=== PATIENT | male | born 1995 | race American Indian/Alaskan Native ===

== ENCOUNTER 2022-03-11 09:46 | Outpatient (REF) | payer OTHER, SELFPAY ==
[2022-03-11 10:17] LABS: MANUAL DIFF FLAG NO
[2022-03-11 11:55] LABS: Appearance Urine HAZY; Color Urine YELLOW; Glucose Urine UA NEG (NEG); Leukocyte Esterase Urine NEG (NEG); Nitrite Urine NEG (NEG); PH 7.5 (5.0-8.0); Specific Gravity - Urine 1.015 (1.005-1.025); Urine Blood NEG (NEG); Urine Ketones NEG (NEG); Urine Protein NEG (NEG-TRACE)
[2022-03-11 11:57] LABS: Basophils Percent Auto 0.5 % (0-2); Eosinophils Absolute Auto 0.1 X10*3/uL (0.0-0.4); Eosinophils Percent Auto 1.1 % (0-4); Estimated Average Glucose 108 mg/dL; Hematocrit 45.8 % (42.0-52.0); Hemoglobin 14.9 g/dl (14.0-18.0); Hemoglobin A1c % 5.4 %; Imm Gran Abs Auto 0.02 X10*3/uL (0.00-0.03); Imm Gran Pct Auto 0.3 % (0.0-0.4); Lymphocytes Absolute Auto 1.8 X10*3/uL (1.2-4.9); Lymphocytes Percent Auto 28.4 % (20-40); Mean Corpuscular HGB Conc 32.5 g/dl (31.0-36.0); Mean Corpuscular Hemoglobin 27.7 pg (27.0-33.0); Mean Corpuscular Volume 85.3 fL (80.0-98.0); Mean Platelet Volume 9.2 fL (9.4-12.4); Monocytes Absolute Auto 0.5 X10*3/uL (0.1-1.2); Monocytes Percent Auto 7.7 % (2-11); Neutrophils Absolute Auto 3.9 x10*3/uL (2.0-8.3); Platelet Count 250 X10*3/uL (160-400); Red Blood Count 5.37 X10*6/uL (4.60-5.80); Red Cell Distribution Width 13.6 % (11.0-16.0); White Blood Count 6.3 X10*3/uL (4.8-10.8)
[2022-03-11 12:09] LABS: Alanine Aminotransferase 47 U/L (0-40); Albumin Level 4.3 g/dL (3.5-5.0); Alkaline Phosphatase 111 U/L (39-117); Anion Gap 12 (12-20); Aspartate Amino Transferase 23 U/L (5-37); Bilirubin Total 0.9 mg/dL (0.0-1.0); Blood Urea Nitrogen 13 mg/dL (9-16); Calcium 9.7 mg/dL (8.4-10.2); Carbon Dioxide 28 mmol/L (22-29); Chloride 103 mmol/L (96-108); Cholesterol 225 mg/dL; Estimated Glomerular Filt Rate > 60; Glucose Random 88 mg/dL (60-115); HDL Cholesterol 46 mg/dL; LDL Cholesterol Calculated 154 mg/dl; Potassium 4.3 mmol/L (3.3-5.1); Sodium 139 mmol/L (135-145); Total Protein 6.7 g/dL (6.5-8.0); Triglycerides 129 mg/dL
[2022-03-11 12:17] LABS: Creatinine Urine 158.18 mg/dL
== END 2022-03-11 09:47 | disposition home or self-care (01) ==
LOC: HO.LAB 09:46
PROVIDERS: PCP Internal Medicine; Visit Provider Internal Medicine
DX: Z00.00 Encounter for general adult medical examination without abnormal findings (principal); I10 Essential (primary) hypertension; M23.92 Unspecified internal derangement of left knee
CPT/HCPCS: 36415; 80053; 80061; 81003; 83036; 85025

== ENCOUNTER 2024-03-14 08:48 | Outpatient (AMB) | payer BC, SELFPAY ==
--- NOTE | 2024-03-14 08:57 | MHC.OFFVIS ---
Vital Signs 03/14/24 09:02 Height 5 ft 7 in Weight 230 lb BMI 36.0 Intake Visit Reasons: N/P rt knee pain/injury knee playin B-ball Intake Note: Pascual is a 28 year old male who presents today as a new patient for an evaluation of right knee pain. Patient reports he was playing basketball about a month ago and when he was running he made a weird turn and heard a popping/cracking sound in his right knee. Pain is focused around the whole knee. His pain is worse when applying weight and when sitting for too long. Patient is wearing a knee brace which is not proving him relief and stability. Allergies No Known Allergies Allergy (Verified 03/14/24 09:02) Medication List - Last Reconciled 03/14/24 by Alanis Washington PA-C ibuprofen 600 mg PO Q8H PRN HPI HPI N/P rt knee pain/injury knee playin B-ball: Details: 28-year-old male who presents to the office today for evaluation of right knee injury about a month ago. He reports he was running and made a weird turn while playing basketball and heard a pop sound with immediate swelling in his right knee. He states he has pain in his whole knee that is aggravated with twisting, pivoting, weight bearing and prolonged sitting. He also reports his knee giving out about 3-4 times a day daily and has been using crutches for support. He has tried ice and Motrin with mild relief. He has been wearing a knee brace for pain and stability without benefits. He has a history of left ACL reconstruction on 06/22/[address] Wagner. 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 Review of Systems Const All systems reviewed & are unremarkable except as noted in HPI and below Physical Exam Vital Signs: BMI result Body Mass Index 36.0 Const General: cooperative, healthy appearing, comfortable, no acute distress, well developed and alert Orientation/consciousness: patient oriented x3 HEENT Head: Yes normal to inspection, Yes normocephalic and Yes atraumatic Eyes General: appearance normal, both eyes and all related structures Resp Effort & Inspection: normal respiratory effort and able to speak in complete sentences Cardio Rate: regular rate Peripheral pulses: Peripheral pulses 2+ throughout GI Palpation (GI): Soft to palpation Skin Lesions: no lesions Rashes: no rashes Neuro General: patient oriented x3 Extrem Other: Right knee: Skin intact, no erythema or joint effusion. Tenderness along the medial and lateral joint line. Full ROM with crepitus. Positive Kathy?s. Laxity noted on exam with anterior drawer when compared to the contralateral side. NVI. Results Reviewed Results Reviewed: Xrays were obtained in the office today and personally reviewed by me of the right knee show mild lateralization of the patella with well preserved joint space on the right. Mild medial joint collapse of the left. Assessment & Plan Assessment & Plan (1) Internal derangement of right knee: Code(s): M23.91 - Unspecified internal derangement of right knee Category: Medical Plan An MRI of the right knee was ordered to further evaluate the ligamentous structures and an order for physical therapy was placed to work on ROM and isometric quad strengthening. A playmaker knee brace was also given to help with his stability until he see us back to discuss his results. Orders: Orders XR knee RT 3V Today M17.11 - Unilateral primary osteoarthritis, right knee PT Evaluation and Treatment Today M23.91 - Unspecified internal derangement of right knee XR hand RT min 3V Today M79.641 - Pain in right hand MR knee RT wo con Today M23.91 - Unspecified internal derangement of right knee Patient Instructions: Scribed for Alanis Washington PA-C, by Ramiro Alicea medical office receptionist assistant, on 03/14/2024 at 8:45 AM EST.? I, Alanis Washington PA-C, have personally reviewed and agree with the information entered by the scribe. Coding Level of Care Code New Pt Level 3 (93090) Diagnoses Internal derangement of right knee M23.91
[2024-03-14 09:02] VITALS: BMI 36.0
== END 2024-03-14 09:36 | disposition home or self-care (01) ==
PROVIDERS: PCP Internal Medicine; Visit Provider Physician Assistant
DX: M23.91 Unspecified internal derangement of right knee (principal)
CPT/HCPCS: 99203

== ENCOUNTER 2024-03-14 08:52 | Outpatient (REF) | payer OTHER, SELFPAY ==
--- NOTE | ~2024-03-14 | XR_ITS ---
EXAMINATION: AP upright views of both knees. 2 additional views of the right knee CLINICAL INFORMATION: Primary osteoarthritis right knee COMPARISON: X-rays of the left knee July 2013. TECHNIQUE: AP upright views of both knees. Lateral patella view of the right knee FINDINGS: Right knee: Bones joints and soft tissues are normal without effusion. Limited left knee AP upright: Narrowing of the medial compartment. Lateral compartment unremarkable. Patellofemoral compartment not assessed. Surrounding bone and soft tissues unremarkable. Previously noted medial ossification not well visualized perhaps obscured given the projection. XR/XR knee RT 3V IMPRESSION: RIGHT KNEE: Normal. LEFT KNEE: Limited AP upright view: Mild to moderate Arthrosis of the medial compartment new compared to prior.
== END 2024-03-14 08:53 | disposition home or self-care (01) ==
LOC: HO.HOSX 08:52
PROVIDERS: Visit Provider Physician Assistant
DX: M17.11 Unilateral primary osteoarthritis, right knee (principal)
CPT/HCPCS: 73562

== ENCOUNTER 2024-04-29 07:14 | Outpatient (REF) | payer BC, SELFPAY ==
--- NOTE | ~2024-04-29 | MR_ITS ---
EXAMINATION: MR KNEE WITHOUT CONTRAST, RIGHT CLINICAL INFORMATION: Unspecified internal derangement. Patient reports injury 3 months ago, pain. COMPARISON: None available. TECHNIQUE: MRI of the knee without contrast was performed using routine sequences on a high-field scanner. FINDINGS: MENISCI: Medial Meniscus: Complex tear of the posterior horn. Undersurface tearing in the medial aspect of the posterior horn, and irregular tearing in the most central portion of the posterior horn. Horizontal/oblique tear extending to the undersurface and free edge in the body. Anterior horn is small in caliber, with meniscal tissue extending into the intercondylar region, suspicious for a torn displaced meniscal tissue. 4:15-10. Lateral Meniscus: Intact. LIGAMENTS: Cruciate: Abnormal signal, laxity and attenuation of the ACL horn suspicious for a high-grade/full-thickness tear. Intact PCL. Collateral: Intact EXTENSOR MECHANISM: Intact ARTICULAR CARTILAGE/BONE: Patellofemoral Compartment: No significant chondral loss. Medial Compartment: Chondral thinning in the weightbearing tibial plateau. Patchy edema in the medial aspect of the femoral condyle and tibial plateau. Lateral Compartment: No significant chondral loss. No fracture. JOINT FLUID AND BURSAE: Small effusion. Small Anguiano's cyst. MR/MR knee RT wo con IMPRESSION: 1. Tear of the medial meniscal posterior horn and body. Anterior horn meniscal tear, with torn meniscal tissue displaced into the intercondylar region. 2. Abnormal ACL findings suspicious for high-grade/full-thickness tearing. 3. Mild medial compartment arthritis. 4. Small effusion. Small Anguiano's cyst.
== END 2024-04-29 07:15 | disposition home or self-care (01) ==
LOC: HO.MRI 07:14
PROVIDERS: PCP Internal Medicine; Visit Provider Physician Assistant
DX: M23.91 Unspecified internal derangement of right knee (principal)
CPT/HCPCS: 73721

== ENCOUNTER 2024-05-23 14:08 | Outpatient (AMB) | payer BC, SELFPAY ==
--- NOTE | 2024-05-23 14:16 | A.OFFVIS_ITS ---
Intake Visit Reasons: OV- Right knee MRI results per TM Intake Note: Pascual a 28 year old male who presents today for an MRI review of right knee. Patient reports no change in symptoms, stating he continues to loose his balance. Allergies No Known Allergies Allergy (Verified 05/23/24 14:25) Medication List - Last Reconciled 05/24/24 by Alanis Washington PA-C ibuprofen 600 mg PO Q8H PRN HPI HPI OV- Right knee MRI results per TM: Details: Pascual is a 28-year-old male who presents today for a right knee f/u MRI. He states that his symptoms have not improved and he still having trouble with his balance, he has made accomodations at work and with his lifestyle to avoid instability of the right knee . He had a surgery of his left knee approximately 10 or [address] Wagner for an acl reconstruction which he tolerated well. Review of Systems Const All systems reviewed & are unremarkable except as noted in HPI and below Physical Exam Const General: cooperative, healthy appearing, comfortable, no acute distress, well developed and alert Orientation/consciousness: patient oriented x3 HEENT Head: Yes normal to inspection, Yes normocephalic and Yes atraumatic Eyes General: appearance normal, both eyes and all related structures Resp Effort & Inspection: normal respiratory effort and able to speak in complete sentences Cardio Rate: regular rate Peripheral pulses: Peripheral pulses 2+ throughout GI Palpation (GI): Soft to palpation Skin Lesions: no lesions Rashes: no rashes Neuro General: patient oriented x3 Extrem Other: Right knee: Skin intact, no erythema or joint effusion. Tenderness along the medial and lateral joint line. Full ROM with crepitus. Positive Kathy?s. Laxity noted on exam with anterior drawer when compared to the contralateral side. NVI. Results Reviewed Results Reviewed: MR knee RT wo con IMPRESSION: 1. Tear of the medial meniscal posterior horn and body. Anterior horn meniscal tear, with torn meniscal tissue displaced into the intercondylar region. 2. Abnormal ACL findings suspicious for high-grade/full-thickness tearing. 3. Mild medial compartment arthritis. 4. Small effusion. Small Anguiano's cyst. Assessment & Plan Assessment & Plan (1) Complete tear of anterior cruciate ligament of right knee: Code(s): S83.511A - Sprain of anterior cruciate ligament of right knee, initial encounter Category: Medical Plan Dr Wagner saw and examined the patient with me today. I discussed the extent of the injury to the patient and options available which include surgical intervention. I explained the procedure in detail along with the length of recovery and rehab course. We reviewed home exercises which he should begin POD 1 (heel slides, SLR, passive extension). I explained to him the use of the brace. He should ambulate with the brace locked in extension, sleep with the brace on, and remove for exercises or resting. I explained the risk, benefits and alternatives. Risk including, but not limited to infection, blood clots, bleeding, ongoing pain and stiffness. I answered all their questions and with their understanding they have consented to move forward with right knee ACL reconstruction with allograft with Dr. Wagner. The patient will be booked accordingly. Patient was fit for an acl brace in the office today. Patient Instructions: Scribed for Alanis Washington PA-C, by Terrence Brooks territory sales manager medical, on 05/23/2024 at 2:15 PM Alanis IGLESIAS PA-C, have personally reviewed and agree with the information entered by the scribe. Coding Level of Care Code Est Pt Level 4 (19517) Diagnoses Complete tear of anterior cruciate ligament of right knee S83.511A
== END 2024-05-23 16:20 | disposition home or self-care (01) ==
PROVIDERS: PCP Internal Medicine; Visit Provider Physician Assistant
DX: S83.511A Sprain of anterior cruciate ligament of right knee, initial encounter (principal)
CPT/HCPCS: 99214

== ENCOUNTER → 2024-05-23 14:08 | Outpatient (BNVA) | payer BC, SELFPAY | PROVIDERS: PCP Internal Medicine; Visit Provider Physician Assistant ==

== ENCOUNTER 2024-06-09 11:27 | Outpatient (AMB) | payer BC, SELFPAY ==
--- NOTE | 2024-06-09 11:43 | A.OFFVIS_ITS ---
Intake Visit Reasons: Preop RT knee ACL/MMR 06/22/24 NE Intake Note: Pascual is a 28 year old male who presents today for a pre op appointment for his right knee ACL/MMR 06/22/24 NE. Allergies No Known Allergies Allergy (Verified 06/09/24 11:44) HPI HPI Preop RT knee ACL/MMR 06/22/24 NE: Details: 28-year-old male who presents in the office today for his preoperative history and physical exam prior to a right knee ACL and medial meniscus repair to be performed on 06/22/[address] Armando Wagner.? ? Patient has no known allergy history.? ? Patient is currently taking, as follows:? -Ibuprofen 600 mg PO Q8H PRN? ? Patient has no significant?medical history.? ? Patient has no known surgical history.? Review of Systems Const All systems reviewed & are unremarkable except as noted in HPI and below Physical Exam Const General: cooperative, healthy appearing, comfortable, no acute distress, well developed, alert and awake Orientation/consciousness: patient oriented x3 HEENT Head: Yes normal to inspection, Yes normocephalic and Yes atraumatic Eyes General: appearance normal, both eyes and all related structures Neck Neck: Yes normal visual inspection and Yes no lymphadenopathy Resp Effort & Inspection: normal respiratory effort and able to speak in complete sentences Cardio Rate: regular rate Peripheral pulses: Peripheral pulses 2+ throughout GI Inspection: Yes normal to inspection Palpation (GI): Soft to palpation Skin General skin exam: no rashes or lesions noted Lesions: no lesions Rashes: no rashes Neuro General: patient oriented x3 Extrem Other: Right knee: Skin intact, no erythema or joint effusion. Tenderness along the medial and lateral joint line. Full ROM with crepitus. Positive Kathy?s. Laxity noted on exam with anterior drawer when compared to the contralateral side. NVI. Psych Mental Status: mental status grossly normal Assessment & Plan Assessment & Plan (1) Complete tear of anterior cruciate ligament of right knee: Code(s): S83.511A - Sprain of anterior cruciate ligament of right knee, initial encounter Category: Medical Plan Mr. Chu is a 28-year-old male who presents in the office today for his preoperative history and physical exam prior to a right knee ACL and medial meniscus repair to be performed on 06/22/[address] Armando Wagner.? ? Patient has no known allergy history.? ? Patient is currently taking, as follows:? -Ibuprofen 600 mg PO Q8H PRN? ? Patient has no significant?medical history.? ? Patient has no known surgical history.? ? I discussed in detail the procedure and what to expect pre and post operatively. We discussed the risks, benefits, alternatives to the surgery and the rehabilitation course. The risks include infection, bleeding, nerve injury, ongoing pain, swelling, and stiffness, perioperative risk of injury to bones and soft tissues, and blood clots.?? ? I have answered all questions and with their understanding they have consented to move forward with a right knee ACL and medial meniscus repair to be performed on 06/22/[address] Armando Wagner.? ? Post operative medications were sent to the pharmacy, oxycodone-acetaminophen 5- 325 mg (Percocet) PO Q4-6H PRN, quantity 42 tabs for 7 days and morphine ER 15 mg (MS Contin) PO Q12H PRN, quantity 6 tabs for 3 days, while in the office today. The patient was instructed that he/she should obtain the prescription prior to surgery but should not consume until after the procedure; as these should only be taken for post operative pain management. Should the patient take these medications before surgery, a refill will not be sent to the pharmacy until their scheduled refill date.? ? I also sent a prescription for a transdermal scopolamine patch to the pharmacy. He will put this on the night before the surgery to help with postoperative nausea and vomiting. ? ? Follow-up will be at the post operative appointment on 06/30/24, or sooner if needed.? Medications: New morphine ER (MS Contin) Partial Fill upon patient request. 15 mg PO Q12H 6 tabs 0RF 3 days oxycodone-acetaminophen 5-325 mg Partial Fill upon patient request. 1 tab PO Q4-6H PRN 42 tabs 0RF pain 7 days scopolamine base 1 patch transdermal Q72H 4 ea 0RF Patient Instructions: Scribed by Cherie De La Cruz medical housekeeper, for Fallon Li PA-C on 06/09/2024 at 11:29 am, EST.? Coding Level of Care Code Global (00910) Diagnoses Complete tear of anterior cruciate ligament of right knee S83.511A
== END 2024-06-09 11:44 | disposition home or self-care (01) ==
PROVIDERS: PCP Internal Medicine; Visit Provider Physician Assistant
DX: S83.511A Sprain of anterior cruciate ligament of right knee, initial encounter (principal)
CPT/HCPCS: 99024

== ENCOUNTER → 2024-06-09 11:27 | Outpatient (BNVA) | payer BC, SELFPAY | PROVIDERS: PCP Internal Medicine; Visit Provider Physician Assistant ==

== ENCOUNTER 2024-06-22 05:50 | Day surgery (SDC) | payer BC, SELFPAY ==
--- NOTE | 2024-06-21 08:44 | HO.ANESPROP2 ---
Documented by User: Isabella Jaeger NP 06/21/24 08:44 HPI - Anesthesia Eval Consult details Narrative: 29yo M for Right ACL Allograft,Medial Meniscus Root Repair PMFSH Active Problems Active Problems: All Active Problems Complete tear of anterior cruciate ligament of right knee (Acute) Internal derangement of right knee (Acute) Surgical History Surgical History History of repair of anterior cruciate ligament of left knee Social History Social History Patient Tobacco Use Status: Never used Tobacco Use of substances other than those prescribed or required for medical reasons: No Are you DNR?: No Advance Directives: No Advance Directives Information Provided: Yes Recently lost weight without trying: No Meds Allergies Allergy/AdvReac Type Severity Reaction Status Date / Time No Known Allergies Allergy Verified 06/09/24 11:44 Home Medications ?Medication ?Instructions ?Recorded ?Confirmed ?Last Taken ?Type ibuprofen 600 mg tablet 600 mg PO Q8H PRN Pain 03/14/24 06/22/24 Unknown History Assessment and Plan Assessment Anesthesia Assessment: Chart Reviewed Documented by User: Loren Salmeron MD 06/22/24 08:33 PMFSH Family History Family history of problems with anesthesia: No Surgical History Surgical History History of repair of anterior cruciate ligament of left knee History of Problems with Anesthesia: No Social History Social History Patient Tobacco Use Status: Never used Tobacco Use of substances other than those prescribed or required for medical reasons: No Are you DNR?: No Advance Directives: No Advance Directives Information Provided: Yes Recently lost weight without trying: No Meds Allergies Allergy/AdvReac Type Severity Reaction Status Date / Time No Known Allergies Allergy Verified 06/09/24 11:44 Home Medications ?Medication ?Instructions ?Recorded ?Confirmed ?Last Taken ?Type ibuprofen 600 mg tablet 600 mg PO Q8H PRN Pain 03/14/24 06/22/24 Unknown History Exam Airway Mallampati Class: II TM Dist: >3cm Neck ROM: Full Heart: rrr Lungs: cta Assessment and Plan Assessment Anesthesia Assessment: Anesthesia Plan Discussed Final Anesthetic Review Family History of Problems with Anesthesia: No History of Problems with Anesthesia: No NPO: Yes ASA Class: II (obesity) Final Preanesthetic Review: No Changes in Pt Med Stat, Meds/Allgs Chart Reviewed, Consent Obtained/Reviewed and Anes Risks/Benef Reviewed Patient Risk: Low Procedure Risk: Intermediate Anesthetic Plan Anesthetic Plan: GA and Regional Block
[2024-06-22] VITALS (7 sets, daily range): BP systolic 111–137; BP diastolic 80–88; PULSE 72–80; RESP 16; TEMP 36.1–36.6; O2SAT 95–98; BMI 37.6
[2024-06-22] MEDS: Lactated Ringers 1,000 ML 100 ML IVCONT (06:41)
[2024-06-22] MEDS: Scopolamine 1.5 MG PATCH.TD.3 EAR-BEHIND (07:24)
--- NOTE | 2024-06-22 07:28 | MHC.SHP ---
Pre-Procedural Eval Section A - 24 Hr Update-Section A only Date of Service: 06/22/24 The patient is an INPATIENT: No Changes since office visit: No Cold of Flu in the past 2 weeks, No New Medical Problems, No Changes in Medication and No Patient answered all questions The patient has been examined within 24 hours of the surgical procedure. The History & Physical has been completed within 30 days and I have reviewed it.: Yes Section B - Complete if H&P > 30 days Chief Complaint: Complex tear of medial meniscus,sprain of aterior Allergies: Allergies Allergy/AdvReac Type Severity Reaction Status Date / Time No Known Allergies Allergy Verified 06/09/24 11:44 Plan I have reviewed the history and physical and performed a pertinent physical examination on my patient. No changes have occurred unless specified. Time Spent With Patient Time: Total time managing care of this patient today ____ minutes.
--- NOTE | 2024-06-22 09:14 | P.BOP_ITS ---
Brief Operative Note Date of Service: 06/22/24 Pre-op diagnosis: REight ACL rupture and meniscal tear Post-op diagnosis: same Procedure: Right partial medial meniscectomy and ACL reconstruction with allograft Implants: Tripathi and Nephew suture button and 9x25 tibial interference screw Surgeon: Armando Wagner MD Anesthesia: GLMA and regional Was an Solution Make Up Operator used for this Procedure?: Yes Solution Make Up Operator: Fallon Li Estimated blood loss (mL): 20 Tourniquet time (min): 60 IV fluids (mL): 1,000 Pathology: none sent Condition: stable Disposition: PACU
--- NOTE | 2024-06-24 14:36 | W.PM.OPN ---
Operative Note Operative Note Date of Service: 06/22/24 Narrative: Date of Service: 06/22/24 Pre-op diagnosis: REight ACL rupture and meniscal tear Post-op diagnosis: same Procedure: Right partial medial meniscectomy and ACL reconstruction with allograft Implants: Tripathi and Nephew suture button and 9x25 tibial interference screw Surgeon: Armando Wagner MD Anesthesia: GLMA and regional Was an Tower Foreman used for this Procedure?: Yes Tower Foreman: Fallon Li Estimated blood loss (mL): 20 Tourniquet time (min): 60 IV fluids (mL): 1,000 Pathology: none sent Condition: stable Disposition: PACU Procedure in detail: Patient was brought to the operating room placed supine on the arthroscopic table and prepped and draped in standard sterile fashion. A time-out was called to identify proper site proper procedure proper surgeon and IV antibiotics per weight were administered. Under anesthesia he had a + pivot shift. I began by exsanguinating the limb and insufflating tourniquet to 300 mm Hg. Then made a standard anterolateral stab incision. The knee was insufflated with water and 30 degree arthroscope was placed. There was grade 0 fibrillations of the patella but overall suprapatellar pouch and the gutters were clean. I descended into the medial compartment where I made my far medial portal under direct visualization. There was an medial meniscus tear in the white/white zone and there was intact capsular attachment. The root was intact and there were no cartilage changes of the MFC. The meniscus tear was not repairable. I debrdied it with a shaver and I then examined the notch where there was a + empty wall sign and an intact PCL. I debrided the stump and acl footprint and performed a limited notchplasty. I then, through a far AM portal and a 7mm behind the back guide, drilled a k-wire through the LFC with the knee in hyper-flexion. I measured the tunnel as a 40 and then after sizing the allograft on the back table drilled a 34 mm tunnel with an 9.5mm reamer. The final 6 mm was drilled with a 4.5 reamer. I then pulled a suture through the femoral tunnel and turned my attention to the tibia. I did examine the femoral tunnel and was satisfied with the posterior wall and its location low and medial at the anatomic footprint. I placed my tibial drill guide in 55 deg and, through a anteromedial inc just lateral to the tibial tubercle placed a k-wire into the notch exiting just medial to the anterior horn insertion of the lateral meniscus. I then over-reamed with a 10 reamer. I cleaned the tunnels up with a shaver. On the back table I whip-stitched the allograft to fit through a 9.5 aperture and attached the femoral button to the looped end. I placed the graft on 15lbs of tension for 10 minutes. I then passed the allograft through the tibial tunnel and femoral tunnel and flipped the button. I cycled the knee about 10-15 cycles and then placed a tibial interference screw with the knee in hyper-extension while holding the graft taught. Once I was satisfied that the interference screw was buried I examined the ACL. The repair was stable and the ACL was not impinging and there was a negative pivot shift. I then removed all instrumentation and closed the incisions with nylon. Patient was then placed in sterile dressings and a hinged knee brace. She was then extubated brought recovery room stable condition. There were no known complications.
== END 2024-06-22 10:51 | disposition home or self-care (01) ==
PROVIDERS: PCP Internal Medicine; Visit Provider Orthopaedic Surgery
PROC: (CPT 27428; principal; 2024-06-22 07:30)
DX: S83.231A Complex tear of medial meniscus, current injury, right knee, initial encounter (principal); S83.511A Sprain of anterior cruciate ligament of right knee, initial encounter; Z79.1 Long term (current) use of non-steroidal anti-inflammatories (NSAID)
CPT/HCPCS: 29888; C1713; C1762; J0131; J0171; J0665; J0690; J1100; J2250; J2405; J2704; J3010

== ENCOUNTER → 2024-06-22 05:50 | Outpatient (BNV) | payer BC, SELFPAY | PROVIDERS: PCP Internal Medicine; Visit Provider Orthopaedic Surgery | DX: S83.241A Other tear of medial meniscus, current injury, right knee, initial encounter (principal); S83.511A Sprain of anterior cruciate ligament of right knee, initial encounter | CPT/HCPCS: 29881; 29888 ==

== ENCOUNTER 2024-06-30 10:11 | Outpatient (REF) | payer BC, SELFPAY ==
--- NOTE | ~2024-06-30 | XR_ITS ---
EXAMINATION: XR KNEE, RIGHT CLINICAL INFORMATION: Right knee pain. COMPARISON: Right knee MRI dated 04/29/2024. TECHNIQUE: AP and lateral views of the right knee. FINDINGS: Postsurgical change consistent with interval anterior cruciate ligament reconstruction. No evidence of hardware complication. No fracture or dislocation. No concerning lytic or blastic osseous lesion. No joint space narrowing or marginal osteophytes. Small joint effusion. XR/XR knee RT 2V IMPRESSION: 1. Postsurgical change consistent with interval anterior cruciate ligament reconstruction. No evidence of hardware complication. 2. Mild tricompartmental osteoarthritis. Small joint effusion. Electronically signed by: Shin Calvillo MD 07/06/2024 09:00 PM EDT
== END 2024-06-30 10:12 | disposition home or self-care (01) ==
LOC: HO.XRAY 10:11
PROVIDERS: PCP Internal Medicine; Visit Provider Physician Assistant
DX: M25.561 Pain in right knee (principal); Z98.890 Other specified postprocedural states
CPT/HCPCS: 73560

== ENCOUNTER 2024-06-30 11:08 | Outpatient (AMB) | payer BC, SELFPAY ==
--- NOTE | 2024-06-30 11:21 | A.OFFVIS_ITS ---
Vital Signs 06/30/24 11:31 Height 5 ft 7 in Weight 230 lb BMI 36.0 Intake Visit Reasons: PO RT knee ACL/MMR 06/22/24 NE Intake Note: Pascual is a 29 year old male who presents today for a post operative appointment s/p Right Knee ACL/MMR 06/22/24. Patient reports that he is doing well he has been having significant pain.Has not yet started PT. No concerns. Sutures Removed - Steris applied Allergies No Known Allergies Allergy (Verified 06/09/24 11:44) HPI HPI PO RT knee ACL/MMR 06/22/24 NE: Details: Two weeks status post ACL reconstruction with partial medial meniscectomy. He is doing well. [facility] Surgical History (Updated 06/30/24 @ 11:43 by Armando Wagner MD) H/O reconstruction of anterior cruciate ligament tear (06/22/24) History of repair of anterior cruciate ligament of left knee Social History Patient Tobacco Use Status: Never used Tobacco Physical Exam Vital Signs: BMI result Body Mass Index 36.0 Extrem Other: Incision clean dry and intact. 0-75 degrees of motion. Quad functioning but weak. Assessment & Plan Assessment & Plan (1) Status post reconstruction of anterior cruciate ligament: Code(s): Z98.890 - Other specified postprocedural states Category: Surgical Plan: PT and knee brace. Caution as he seems a little [place] with his activity but doing well. Follow up 4 weeks Orders: Orders XR knee RT 2V 06/30/24 Alanis Washington PA-C M25.569 - Pain in unspecified knee XR knee RT 2V 06/30/24 Alanis Washington PA-C M25.569 - Pain in unspecified knee PT Evaluation and Treatment 06/30/24 Armando Wagner MD Z98.890 - Other specified postprocedural states Coding Level of Care Code Global (28971) Diagnoses Status post reconstruction of anterior cruciate ligament Z98.890
[2024-06-30 11:31] VITALS: BMI 36.0
== END 2024-06-30 13:16 | disposition home or self-care (01) ==
PROVIDERS: PCP Internal Medicine; Visit Provider Orthopaedic Surgery
DX: Z98.890 Other specified postprocedural states (principal)
CPT/HCPCS: 99024

== ENCOUNTER 2024-08-01 10:47 | Outpatient (AMB) | payer BC, SELFPAY ==
[2024-08-01 10:49] VITALS: BMI 36.0
--- NOTE | 2024-08-01 10:49 | MHC.OFFVIS ---
Vital Signs 08/01/24 10:49 Height 5 ft 7 in Weight 230 lb BMI 36.0 Intake Visit Reasons: PO RT knee ACL/MMR 06/22/24 NE Intake Note: Pascual is a 29 year old male who presents today for a post operative appointment s/p Right Knee ACL/MMR 06/22/24 Allergies No Known Allergies Allergy (Verified 08/01/24 10:50) HPI HPI PO RT knee ACL/MMR 06/22/24 NE: Details: Pascual is a 29 year old male who presents today for a post operative appointment s/p Right Knee ACL/MMR 06/22/24. Overall doing OK. Pain with PT. Late to start PT. PFSH Surgical History (Updated 06/30/24 @ 11:43 by Armando Wagner MD) H/O reconstruction of anterior cruciate ligament tear (06/22/24) History of repair of anterior cruciate ligament of left knee Social History Patient Tobacco Use Status: Never used Tobacco Physical Exam Vital Signs: BMI result Body Mass Index 36.0 Extrem Other: portals c/d/i 0-125 stable Chan's Assessment & Plan Assessment & Plan (1) Status post reconstruction of anterior cruciate ligament: Code(s): Z98.890 - Other specified postprocedural states Category: Surgical Plan: Stable knee doing well. Continue PT. No work for 6 weeks. f/u 6 weeks Coding Level of Care Code Global (48371) Diagnoses Status post reconstruction of anterior cruciate ligament Z98.890
== END 2024-08-01 10:59 | disposition home or self-care (01) ==
PROVIDERS: PCP Internal Medicine; Visit Provider Orthopaedic Surgery
DX: Z98.890 Other specified postprocedural states (principal)
CPT/HCPCS: 99024

== ENCOUNTER → 2024-08-01 10:47 | Outpatient (BNVA) | payer BC, SELFPAY | PROVIDERS: PCP Internal Medicine; Visit Provider Orthopaedic Surgery ==

== ENCOUNTER 2024-09-12 10:00 | Outpatient (AMB) | payer BC, SELFPAY ==
--- NOTE | 2024-09-12 10:07 | MHC.OFFVIS ---
Intake Visit Reasons: PO RT knee ACL/MMR 06/22/24 NE Intake Note: Pascual is a 29 year old male who presents today for a post operative appointment s/p Right Knee ACL/MMR 06/22/24. He remains out of work at this time, but is set to return on 09/15/24. He reports that he is doing well, making improvements with no concerns Allergies No Known Allergies Allergy (Verified 09/12/24 10:08) HPI HPI PO RT knee ACL/MMR 06/22/24 NE: Details: Pascual is a 29 year old male who presents today for a post operative appointment s/p Right Knee ACL/MMR 06/22/24. He remains out of work at this time, but is set to return on 09/15/24. He reports that he is doing well, making improvements with no concerns PFSH Surgical History (Updated 06/30/24 @ 11:43 by Armando Wagner MD) H/O reconstruction of anterior cruciate ligament tear (06/22/24) History of repair of anterior cruciate ligament of left knee Social History Patient Tobacco Use Status: Never used Tobacco Physical Exam Extrem Other: Right knee inc c/d/i No effusion Stable Chan's Full ROM Assessment & Plan Assessment & Plan (1) Status post reconstruction of anterior cruciate ligament: Code(s): Z98.890 - Other specified postprocedural states Category: Surgical Plan: Doing well. Continue PT per ACL rehab protocol. F/u 3 mo Coding Level of Care Code Global (76752) Diagnoses Status post reconstruction of anterior cruciate ligament Z98.890
== END 2024-09-12 10:48 | disposition home or self-care (01) ==
PROVIDERS: PCP Internal Medicine; Visit Provider Orthopaedic Surgery
DX: Z98.890 Other specified postprocedural states (principal)
CPT/HCPCS: 99024

== ENCOUNTER 2025-01-19 08:22 | Outpatient (AMB) | payer BC, SELFPAY ==
--- NOTE | 2025-01-19 08:32 | MHC.OFFVIS ---
Vital Signs 01/19/25 08:33 Height 5 ft 7 in Weight 230 lb BMI 36.0 Intake Visit Reasons: OV RT knee ACL/MMR 06/22/24 NE Intake Note: Pascual is a 29 year old male who presents today for a post operative appointment s/p Right Knee ACL/MMR 06/22/24. Patient reports he returned to work in August and continues working without complications. Patient reports today he is doing well. Allergies No Known Allergies Allergy (Verified 01/19/25 08:35) HPI HPI OV RT knee ACL/MMR 06/22/24 NE: Details: Pascual is a 29 year old male who presents today for a post operative appointment s/p Right Knee ACL/MMR 06/22/24. Patient reports he returned to work in August and continues working without complications. Patient reports today he is doing well. The patient is a 29-year-old male presenting with follow-up evaluation for his post-ACL right knee and new onset of left knee pain. He underwent arthroscopic surgery on the right knee approximately seven months ago, reporting a stable recovery without complications and states he is feeling pretty good. He continues physical activities but has decided against returning to playing sports. The patient experiencing left knee pain predominantly localized to the inner side for about the past three months. The discomfort is primarily triggered by motions such as twisting, suggesting possible meniscal involvement. There is no history of specific trauma to the knee, and he mentions the episodes are intermittent. [facility] Surgical History (Updated 06/30/24 @ 11:43 by Armando Wagner MD) H/O reconstruction of anterior cruciate ligament tear (06/22/24) History of repair of anterior cruciate ligament of left knee Social History Patient Tobacco Use Status: Never used Tobacco Physical Exam Vital Signs: BMI result Body Mass Index 36.0 Extrem Other: Consent was assumed based on the conversation for a detailed evaluation of the right knee post-surgery. - Right knee shows full extension and flexion. Negative Chan test, and negative anterior drawer test indicating stability. Examination for varus and valgus stresses shows stability. - left knee was examined. He has full range of motion with tenderness to palpation along the medial joint line and a mildly positive medial Steinmann's. Stable to varus and valgus stress. Assessment & Plan Assessment & Plan (1) Status post reconstruction of anterior cruciate ligament: Code(s): Z98.890 - Other specified postprocedural states Category: Surgical Plan: Continued physical therapy focused on dynamic and adri-wx-lyfv motion is recommended to enhance the patient's recovery post-right knee surgery, as the patient feels stable and is not planning to resume sports. For the left knee, suggest exploring physical therapy as a conservative initial approach targeting any possible meniscal irritation. Further evaluation, such as MRI, could be considered later should symptoms persist or worsen. A follow-up appointment is advised in three months to assess progress. Patient was informed and verbally consented to the use of an ambient scribe for clinic note documentation during this visit. I discussed with the patient the stability of his right knee post-surgery and the potential benefits of ongoing physical therapy to enhance joint function. Regarding the left knee pain, we discussed the possibility of meniscal involvement and agreed on the initial plan of conservative management through physical therapy with the option to pursue MRI imaging should symptoms not improve. We will reassess his knees in three months. The patient expressed understanding and consented to the proposed plan. - Continue physical therapy focusing on dynamic and adyj-rp-naoc movements for your right knee. - Start physical therapy sessions for your left knee and monitor pain symptoms. - Follow up in three months for evaluation to determine progress. - Report any significant worsening of symptoms or knee instability promptly. (2) Internal derangement of left knee: Code(s): M23.92 - Unspecified internal derangement of left knee Category: Medical Plan: Coding Level of Care Code Est Pt Level 3 (07045) Complex EM visit Add On G2211 Diagnoses Status post reconstruction of anterior cruciate ligament Z98.890 Internal derangement of left knee M23.92
[2025-01-19 08:33] VITALS: BMI 36.0
== END 2025-01-19 08:50 | disposition home or self-care (01) ==
LOC: HO.HOS 08:22
PROVIDERS: PCP Internal Medicine; Visit Provider Orthopaedic Surgery
DX: M23.92 Unspecified internal derangement of left knee (principal)
CPT/HCPCS: 99213

== ENCOUNTER → 2025-01-19 08:22 | Outpatient (BNVA) | payer BC, SELFPAY | PROVIDERS: PCP Internal Medicine; Visit Provider Orthopaedic Surgery ==